=== PATIENT | male | born 1955 | race African-American/Black ===

== ENCOUNTER 2020-05-28 13:40 | Inpatient (IN) | payer OTHER ==
[~2020-05-28] VITALS: Ht 182.9 cm; Wt 89.8 kg
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
[~2020-05-28 13:40] MED LIST: ADVIL200 M1 PO; ASPIR-TRIN325 MG PO; ASPIRIN325 PO; CLOPIDOGREL75 MG PO; EXCEDRIN CAPLE1 EACH PO; FIBER0.52 G1 PO; FIBER0.52 GM PO; GLUCOPHAGE500 MG PO; LANTUS; LANTUS100 UNIT/M SUBQ; LEVEMIR SUBQ; LEVEMIR100 UNIT/1 SUBQ; LIPITOR40 MG PO; METOPROLOL TART25 MG PO; MULTIVITAMINS PO; NITROGLYCERIN0.4 MG SL; NORVASC 5 MG TAB5 MG PO; NORVASC2.5 MG PO; NOVOLOG100 UNIT/1 SUBQ; PEPCID20 MG PO; TOPROL XL25 MG PO; ZESTRIL20 MG PO
[2020-05-28 13:41] VITALS: BP 147/91
[2020-05-28 13:51] LABS: ABSOLUTE NEUTROPHILS 3.3 thou/uL (1.4-8.2); BASOPHILS 1.4 % (0.0-2.0); HEMATOCRIT 43.1 % (42.0-52.0); HEMOGLOBIN 14.3 gm/dL (14.0-18.0); LYMPHOCYTES 27.3 % (24.0-44.0); MCH 30.5 pg (26.0-34.0); MCHC 33.2 g/dL (28.0-37.0); MCV 91.9 fL (80.0-100.0); MONOCYTES 6.2 % (1.0-8.0); PLATELET COUNT 175 thou/uL (150-400); POLYS 63.1 % (36.0-66.0); RDW 17.5 % (10.5-14.5); WBC 5.3 thou/uL (4.0-11.0)
[2020-05-28] MEDS ORDERED: CARVEDILOL12.5 MG PO (13:53)
[2020-05-28] MEDS ORDERED: HUMALOG KW100 UNIT/1 SUBQ (13:54)
[2020-05-28] MEDS ORDERED: LANTUS SOL100 UNIT/1 SUBQ (13:55)
[2020-05-28 14:00] LABS: CALCIUM 9.2 mg/dL (8.5-10.1); CREATININE 1.5 mg/dL (0.7-1.3); POTASSIUM 3.9 mmol/L (3.5-5.1)
[2020-05-28 14:10] LABS: ALBUMIN 3.2 g/dL (3.4-5.0); TOTAL BILIRUBIN 0.4 mg/dL (0.2-1.0); TOTAL PROTEIN 7.4 g/dL (6.4-8.2); TROPONIN-I 0.07 ng/mL (<0.06)
--- NOTE | 2020-05-28 15:10 | EKG ---
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: [facility] : 1955 Requested By: [place] Order Number: [id number] MD: Sonido Grimm Measurements Intervals [place] Rate: 91 P: 24 ME: 148 QRS: 52 QRSD: 116 T: 85 QT: 364 QTc: 448 Interpretive Statements Atrial-paced complexes Nonspecific intraventricular conduction delay Borderline repolarization abnormality Baseline wander in lead(s) V1,V2,V3,V6 Compared to ECG 09/21/2013 13:38:41 Intraventricular conduction delay now present Sinus rhythm no longer present Ventricular premature complex(es) no longer present Myocardial infarct finding no longer present ST (T wave) deviation no longer present Possible ischemia no longer present Electronically Signed On 05-28-2020 15:10:24 [employer] by Sonido Grimm [email or web address] <ELECTRONICALLY SIGNED> By: Sonido Grimm MD, [facility] 05/28/20 1510 1339 [id number] Sonido Grimm MD, [facility] /EPI
[2020-05-28 15:20] LABS: PROTIME 10.7 Seconds (9.3-11.4)
[2020-05-28 18:00] LABS: HEMATOCRIT 43.9 % (42.0-52.0); HEMOGLOBIN 14.6 gm/dL (14.0-18.0); MCH 30.8 pg (26.0-34.0); MCHC 33.3 g/dL (28.0-37.0); MCV 92.6 fL (80.0-100.0); RBC 4.75 mil/uL (4.50-6.00); RDW 17.2 % (10.5-14.5); WBC 5.6 thou/uL (4.0-11.0)
[2020-05-28 18:09] LABS: AMP/METHAMP Negative (Negative); BARBITURATES Negative (Negative); BENZODIAZEPINES Negative (Negative); COCAINE POSITIVE (Negative); METHADONE Negative (Negative); OPIATES Negative (Negative); PCP Negative (Negative)
[2020-05-28 18:15] LABS: CHOLESTEROL 157 mg/dL (<200); HDL CHOLESTEROL 52 mg/dL (>40); LDL CHOLESTEROL 90 mg/dL (<100); TRIGLYCERIDE 75 mg/dL (<150); VLDL 15 mg/dL (<40)
[2020-05-28 18:21] LABS: APTT 25.4 Seconds (24.5-32.8); PROTIME 10.7 Seconds (9.3-11.4)
[2020-05-28 21:43] VITALS: BP 149/97
[2020-05-28 22:12] VITALS: BP 128/88
[2020-05-28 22:30] VITALS: BP 140/102
[2020-05-29] VITALS (9 sets, daily range): BP systolic 118–133; BP diastolic 78–89
[2020-05-29 07:08] LABS: GLYCOHEMOGLOBIN (HGB A1C) 11.6 % (4.8-5.6)
--- NOTE | 2020-05-29 07:32 | EKG ---
[facility] [place] [address] ELECTROCARDIOGRAM REPORT Name: JUANITA MESSER Room #: 212-P ADM IN M.R.#: [id number] Admission: 05/28/20 Attend Phys: Ky Graham MD Discharge: Date of : 59 Report #: [id number] THIS REPORT FOR: cc: SONIA - Mounika family physician/PCP SONIA - Mounika family physician/PCP Sonido Grimm MD [facility] THIS REPORT FOR: //name// [facility] Test Date: 2020-05-29 Test Time: 07:07:30 Pat Name: JUANITA MESSER Department: Room: 212 P Gender: M [employer]ra[employer] Worker: ALIA : 1955 Requested By: Mere Delong Order Number: [id number] MD: Sonido Grimm Measurements Intervals [place] Rate: 70 P: MS: 170 QRS: 40 QRSD: 108 T: 145 QT: 400 QTc: 432 Interpretive Statements Atrial-paced rhythm Abnrm T, consider ischemia, anterolateral lds Baseline wander in lead(s) V1 Compared to ECG 05/28/2020 13:39:36 Possible ischemia now present Intraventricular conduction delay no longer present Electronically Signed On 05-29-2020 7:32:07 [employer] by Sonido Grimm [email or web address] <ELECTRONICALLY SIGNED> By: Sonido Grimm MD, FACC 05/29/2032 6 6 Sonido Grimm MD, [facility] /EPI
[2020-05-29 09:44] LABS: CALCIUM 8.3 mg/dL (8.5-10.1); CREATININE 1.4 mg/dL (0.7-1.3)
--- NOTE | 2020-05-29 10:51 | 2DMMODE ---
[facility] [address] [place] [address] 2 D/M-MODE ECHOCARDIOGRAM Name: JUANITA MESSER Room #: 212-P ADM IN M.R.#: [id number] Admission: 05/28/20 Attend Phys: Ky Graham MD Discharge: Date of : 59 Report #: [id number] THIS REPORT FOR: cc: FAM - No family physician/PCP FAM - No family physician/PCP Arsh Mendez MD ~ APPROVED REPORT Study performed: 05/29/2020 08:04:40 EXAM: Comprehensive 2D, Doppler, and color-flow Echocardiogram Patient Location: Bedside Room #: 212 Status: routine BSA: 2.12 HR: 75 bpm BP: 133/84 mmHg Rhythm: NSR Other Information Study Quality: Good Indications Diabetes CAD Chest Pain Hypertension/HDD 2D Dimensions RVDd: 39.42 mm IVSd: 13.26 (7-11mm) LVOT Diam: 25.11 (18-24mm) LVDd: 53.93 mm PWd: 10.48 (7-11mm) Ascending Ao: 35.70 (22-36mm) LVDs: 48.23 (25-40mm) Aortic Root: 36.00 mm IVC: 16.00 mm Volumes Left Atrial Volume (Systole) Single Plane 4CH: 40.09 mL Single Plane 2CH: 136.54 mL LA ESV Index: 38.00 mL/m2 Aortic Valve LVOT Max P.48 mmHg LVOT Max V: 0.79 m/s [facility] [address] [place] [address] 2 D/M-MODE ECHOCARDIOGRAM Name: RIP MESSERLACHELLE Crowe Room #: 212-P [facility] IN ..#: [id number] Admission: 05/28/20 Attend Phys: Ky Graham MD Discharge: Date of : 59 Report #: [id number] Mitral Valve E/A Ratio: 1.4 MV Decel. Time: 177.73 ms MV E Max Jj.: 0.75 m/s MV A Jj.: 0.53 m/s MV PHT: 51.54 ms IVRT: 115.34 ms Pulmonary Vein P Vein S: 0.41 m/s P Vein A: 0.27 m/s P Vein D: 0.29 m/s P Vein A Dur.: 152.2 msec P Vein S/D Ratio: 1.41 Tricuspid Valve TR Peak Jj.: 2.55 m/s TR Peak Gr.: 25.98 mmHg PA Pressure: 31.00 mmHg Left Ventricle The left ventricle is normal size. Borderline concentric left ventricular hypertrophy. Left ventricular systolic function is moderately decreased. LVEF is 30-35%. Grade II - pseudonormal filling dynamics. Right Ventricle The right ventricle is normal size. The right ventricular systolic function is normal. Pacemaker lead is present in the right ventricle. Atria Left atrium is dilated. Right atrium is dilated. Pacemaker lead is present in the right atrium. Aortic Valve The aortic valve is normal in structure. The Aortic valve is sclerotic. Trace aortic regurgitation. There is no aortic valvular stenosis. Mitral Valve The mitral valve is normal in structure. Mild mitral regurgitation. No evidence of mitral valve stenosis. Tricuspid Valve The tricuspid valve is normal in structure. There is mild tricuspid regurgitation. Estimated PAP 31 mmHg. There is mild pulmonary hypertension. [facility] [place] [address] 2 D/M-MODE ECHOCARDIOGRAM Name: JUANITA MESSER Room #: 212-P ADM IN M.R.#: [id number] Admission: 05/28/20 Attend Phys: Ky Graham MD Discharge: Date of : 59 Report #: [id number] Pulmonic Valve The pulmonary valve is normal in structure. There is no pulmonic valvular regurgitation. Great Vessels The aortic root is normal in size. IVC is normal in size and collapses >50% with inspiration. Pericardium There is no pericardial effusion. <Conclusion> The left ventricle is normal size. Left ventricular systolic function is moderately decreased. The right ventricular systolic function is normal. Pacemaker lead is present in the right ventricle. Left atrium is dilated. Right atrium is dilated. Pacemaker lead is present in the right atrium. The aortic valve is normal in structure. The Aortic valve is sclerotic. Trace aortic regurgitation. The mitral valve is normal in structure. Mild mitral regurgitation. The tricuspid valve is normal in structure. There is mild tricuspid regurgitation. Estimated PAP 31 mmHg. There is mild pulmonary hypertension. The pulmonary valve is normal in structure. There is no pericardial effusion. <ELECTRONICALLY SIGNED> By: Arsh Mendez MD 05/29/20 105 50 105 Arsh Mendez MD /INF
--- NOTE | 2020-05-29 17:01 | NUR ---
Patient admits with chest pain. He reports he lives in [facility] with [address]. he is rec disability. He lives with family. He rec care at [facility]. he ran out of medications for months due to COVID. Discussed can cont to see/telemed with phys. he reports interest in f/u with [facility] Cardiology. Gave patient information for [employer] and prescription card.
[2020-05-30 05:00] VITALS: BP 128/82
[2020-05-30 08:42] VITALS: BP 115/80
[2020-05-30 11:35] VITALS: BP 119/84
[2020-05-30] MEDS ORDERED: ASPIRIN EC81 M1 PO (12:09)
[2020-05-30] MEDS ORDERED: TYLENOL325 M1 PO (12:09)
[2020-05-30] MEDS ORDERED: GLUCOTROL XL5 MG PO (12:12)
[2020-05-30] MEDS ORDERED: FREESTYLE LANC1 EACH MISCELL (12:12)
[2020-05-30] MEDS ORDERED: FREESTYLE LITE1 EACH SUBQ (12:13)
[2020-05-30] MEDS ORDERED: FREESTYLE FREE1 EAC1 MISCELL (12:14)
[2020-05-30 14:14] VITALS: BP 119/84
--- NOTE | 2020-05-30 15:41 | NUR ---
plan home today vouched for cab home and verified address. Attempted to [facility] to assure patient compliant with medications but they do not accept [employer] ins medicare D plan. [facility] [address]. Encouraged this patient to fill scripts for compliance.
--- NOTE | 2020-06-15 14:39 | CATHLAB ---
[facility] [place] [address] INVASIVE PROCEDURE REPORT Name: JUANITA MESSER Room #: 212-P [facility] IN M.R.#: [id number] Admission: 05/28/20 Attend Phys: Ky Graham MD Discharge: 05/30/20 Date of : 59 Report #: [id number] THIS REPORT FOR: cc: SONIA - No family physician/PCP FAM - No family physician/PCP Arsh Mendez MD ~ APPROVED REPORT Study performed: 05/29/2020 11:02:11 Patient Details Patient Status: In-Patient Room #: The patient is a 64 year-old male Event Personnel Arsh Mendez Adoption Specialist, Mirlande Azul RTR, WORKERS COMPENSATION CLAIMS SPECIALIST Monitor, Bhavin Cadena RN RN, Shantell Condon RTR Scrub Procedures Performed Art Access - R femoral artery* Left Heart Cath w/or w/o Coronaries [id number] [facility] Hemostasis with Manual pressure 94976 Initial Mod Sed Same Phys/QHP Gr 751821 52575 Mod Sed Same Phys/QHP Ea 063325, supervision of conscious sedation Indication Chest pain Procedure Narrative The Right Groin^ was infiltrated with 1% Lidocaine subcutaneous anesthesia. A PINNACLE 4FR Sheath #[id number] sheath was inserted into the RFA^. Coronary angiography was performed using coronary diagnostic catheters. The right coronary system was accessed and visualized with a JR4 catheter. The left coronary system was accessed and visualized with a JL4 catheter. The left ventricle was accessed and visualized with a ANGLED PIGTAIL catheter. Left ventricular/Aortic Valve gradient assessed via catheter pullback. Hemostasis was obtained with manual pressure following sheath removal without any complications. The patient tolerated the procedure well and there were no complications associated with the procedure. There was no hematoma. Intraoperative Conscious Sedation Sedation start time: 11:37 Case end Time: [facility] [place] [address] [place] [address] INVASIVE PROCEDURE REPORT Name: AYDEJUANITA Room #: 212-P [facility] IN .R.#: [id number] Admission: 05/28/20 Attend Phys: Ky Graham MD Discharge: 05/30/20 Date of : 59 Report #: [id number] 12:06 Versed 2 mg Fluoro Time: 2.07 minutes Dose: DAP 2766.30 cGycm2 381 mGy Contrast Type and Amount: Omnipaque 55 ml Coronary Angiography The patient's coronary anatomy is right dominant. Diagnostic Cath Left Main Large caliber vessel of normal origin bifurcates to LAD and LCx artery. Extensive flouroscopic calcifications present without high grade obstructive lesions.There are mild luminal irregularities LAD Moderate caliber Type III vessel gives rise to a moderate caliber d1 and a small caliber d2. mild luminal irregularities are present. Diagonal 1 moderate caliber vessel with a 50% ostial lesion which is not flow limiting Diagonal 2 small caliber vessel without high grade lesions Circumflex Moderate caliber vessel giving rise to an early OM1 then rapidly tapers and terminantes as a posterior wall branch of small caliber OM1 moderate caliber coursing along the lateral aspect of the left ventricle with mild proximal eccentric region of less than 30% Right Coronary Normal origin, moderate to large caliber with a proximal eccentric narrowing. In this site it appears as eith a smal stable spontaneous linear dissection or a small branch vessel. no significant obstruction to flow. there is nohighgrade lesions only luminal irregularities R PDA small caliber nonobstructive vessel Left Ventriculography Left Ventriculography was not performed. Hemodynamics The aortic pressure is 124/85 mmHg with a mean of 103 mmHg. The left ventricular pressure is 121/4 mmHg with a mean of mmHg. The left ventricular end diastolic pressure is 28 mmHg. Conclusion 1. Coronary Artery disease mild to moderate non obstructive 2. Normal Hemodynamics [facility] [address] [place] [address] INVASIVE PROCEDURE REPORT Name: JUANITA MESSER Room #: 212-P [facility].#: [id number] Admission: 05/28/20 Attend Phys: Ky Graham MD Discharge: 05/30/20 Date of : 59 Report #: [id number] Recommendations Cardiac Risk Reduction Program Medical Therapy <ELECTRONICALLY SIGNED> By: Arsh Mendez MD 06/15/20 1439 1439 143 Arsh Mendez MD /INF
== END 2020-05-30 15:07 | disposition home or self-care (01) | DRG 287 ==
LOC: ER 13:40 → EROBS 16:55 → 2N 16:55
PROVIDERS: Emergency Medicine; Internal Medicine; Nurse Practitioner Adult Health; ADMIT Internal Medicine; ATTEND Internal Medicine
PROC: 4A023N7 Measurement of Cardiac Sampling and Pressure, Left Heart, Percutaneous Approach (ICD-10-PCS; principal; 2020-05-29)
PROC: B2111ZZ Fluoroscopy of Multiple Coronary Arteries using Low Osmolar Contrast (ICD-10-PCS; principal; 2020-05-29)
DX: I25.110 Atherosclerotic heart disease of native coronary artery with unstable angina pectoris (principal); D68.59 Other primary thrombophilia; R65.10 Systemic inflammatory response syndrome (SIRS) of non-infectious origin without acute organ dysfunction; T40.5X1A Poisoning by cocaine, accidental (unintentional), initial encounter; I10 Essential (primary) hypertension; E11.9 Type 2 diabetes mellitus without complications; E78.5 Hyperlipidemia, unspecified; F14.10 Cocaine abuse, uncomplicated; F17.210 Nicotine dependence, cigarettes, uncomplicated; Z20.828 Contact with and (suspected) exposure to other viral communicable diseases; Z91.19 Patient's noncompliance with other medical treatment and regimen; Z79.4 Long term (current) use of insulin; Z79.82 Long term (current) use of aspirin; Z79.899 Other long term (current) drug therapy; Z90.49 Acquired absence of other specified parts of digestive tract; I25.2 Old myocardial infarction; Z86.718 Personal history of other venous thrombosis and embolism; Z28.21 Immunization not carried out because of patient refusal; Y92.89 Other specified places as the place of occurrence of the external cause
CPT/HCPCS: 10081